=== PATIENT | male | born 1975 | race Caucasian/White ===

== ENCOUNTER 2020-04-13 17:48 | Emergency (ER) | payer OTHER, MEDICAID, SELFPAY ==
[2020-04-13 18:35] VITALS: BP 189/119; PULSE 110; RESP 17; TEMP 36.6; O2SAT 99; BMI 24.3
--- NOTE | 2020-04-13 23:25 | PC.NURSE ---
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 This area has remained red, raised and has had scant purulent drainage in the past. Over the past week pt noticed red/patchy areas on arms and torso appear. Pin prick read spots clumped together in areas. Itchy. Pt tried flea/tick shampoo, but there was not an improvement.
--- NOTE | 2020-04-14 00:56 | ED.SKABFB ---
HPI - Skin/Abscess/Foreign Bdy General Chief complaint: Skin/Abscess/Foreign Body Stated complaint: multiple bites on body,arms and legs Time Seen by Provider: 04/14/20 00:55 Source: patient Mode of arrival: Ambulatory Limitations: no limitations History of Present Illness HPI narrative: The patient has a lesion on his left lower back. He 1st noticed this about 1 month ago. He has pain site, he has occasional drainage from the site. He has had no trauma or injury at the site. He has no similar lesions. There is uncomfortable. Additionally, he has rash on upper extremities for about 1 week. 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 He has no obvious insect bites, or skin lesions. He has no fever. He denies chronic skin problems. Related Data Home Medications Medication Instructions Recorded Confirmed alprazolam 0.5 mg OR BID PRN #0 01/19/16 methylphenidate HCl [Ritalin] 20 mg OR TID #0 01/19/16 Previous Rx's Medication Instructions Recorded cephalexin [Keflex] 500 mg PO Q6H 7 Days #0 cap 01/19/16 sulfamethoxazole-trimethoprim 1 tab PO DAILY 7 Days tab 04/14/20 Allergies Allergy/AdvReac Type Severity Reaction Status Date / Time No Known Drug Allergies Allergy Verified 04/13/20 18:41 Review of Systems Constitutional Constitutional: Denies chills, Denies fever(s) and Denies weakness ENT Ears, Nose, Mouth, and Throat: Denies sore throat Cardiovascular Cardiovascular: Denies dyspnea Respiratory Respiratory: Denies chest congestion, Denies cough and Denies dyspnea Integumentary/Breasts Skin/Breast: Reports as per HPI Neurologic Neurologic: Denies weakness Patient History Medical History (Updated 04/14/20 @ 01:07 by Jose Guadalupe Hicks MD) No chronic diseases present (Acute) Surgical History (Updated 04/14/20 @ 01:04 by Jose Guadalupe Hicks MD) No significant past surgical history (Acute) Social History Smoking Status: Current every day smoker Smoking Status: Current every day smoker alcohol intake frequency: other Substance Use Type: does not use Exam Initial Vital Signs Initial Vital Signs: Vital Signs Temperature 98 F 04/13/20 18:35 Pulse Rate 110 H 04/13/20 18:35 Respiratory Rate 17 04/13/20 18:35 Blood Pressure 189/119 H 04/13/20 18:35 Pulse Oximetry 99 04/13/20 18:35 Const General: cooperative and well developed Nutritional Appearance: well nourished Eyes Conjunctivae: conjunctivae normal Sclera: sclerae normal Pupils: PERRL EOM: EOM intact bilaterally Skin Other: Diffuse, small, punctate erythematous lesions on upper extremities. No cellulitis. No pustules. 1 cm raised lesion on the left lower back, currently erythematous. No pain or discharge. Uncomfortable to the patient. Appears to be a large nevus. Course Vital Signs Vital signs: Vital Signs - 8 hr 04/13/20 18:35 Temperature 98 F Pulse Rate 110 H Respiratory Rate 17 Blood Pressure 189/119 H Pulse Oximetry 99 MDM - Skin/Abscess/Foreign Bdy Medical Records Medical records narrative: There appears to be infections associated with the left lower back skin lesion. Have started him Septra. I would suggest biopsy or excision of the lesion. He will be referred surgery. The rash in his upper arms as consistent with atopic dermatitis. I recommended Benadryl. Discharge Plan Departure Patient Disposition: Home Clinical Impression: Skin lesion of back Atopic dermatitis Qualifiers: Atopic dermatitis type: other Qualified Code(s): L20.89 - Other atopic dermatitis Instructions: DI for Atopic Dermatitis-Adult, DI for Wound Infection Activity Restrictions/Additional Instructions: Septa DS 2 times daily as prescribed. This is for the lesion on her lower back. Benadryl every 4-6 hours as needed for itching and rash of the upper extremities. I recommend you have the skin lesion on your back biopsied or removed. I am referring you to a local surgeon, Dr. Wright. His contact information will be attached. Cough or appointment. Prescriptions: New sulfamethoxazole-trimethoprim 800-160 mg tablet 1 tab PO DAILY 7 Days RF: 0 No Action alprazolam 0.25 MG tablet 0.5 mg OR BID PRNQty: 0 RF: 0 methylphenidate HCl [Ritalin] 20 MG tablet 20 mg OR TID Qty: 0 RF: 0 cephalexin [Keflex] 500 MG capsule 500 mg PO Q6H 7 Days Qty: 0 RF: 0 Referrals: Vazquez Wright MD [Physician] -
[2020-04-14] MEDS: TRIMETH/SULFA 160/800 (DS) TABLET 1 TAB PO (01:13)
[2020-04-14 01:23] VITALS: BP 174/99; PULSE 89; RESP 14; O2SAT 97
== END 2020-04-14 01:23 | disposition home or self-care (01) ==
PROVIDERS: Emergency Provider Emergency Medicine
DX: L98.9 Disorder of the skin and subcutaneous tissue, unspecified (principal); L20.89 Other atopic dermatitis
CPT/HCPCS: 99283